=== PATIENT | female | born 1990 | race Caucasian/White ===

== ENCOUNTER 2025-04-11 18:36 | Emergency (ER) | payer BC, SELFPAY ==
--- OUTSIDE RECORDS SUMMARY | 2025-04-11 18:38 | XMS_ITS | Clinical Summary ---
Author Organization [facility] Address [address] [place] [address] Phone Care Team Providers Care Physician Assistant Surgery Name Role Phone Brayan Stanley APRN, VALERY Primary Care Provider Social History Tobacco Use Types Packs/Day Years Used Date Smoking Tobacco: Never Assessed Comments Unknown Sex and Gender Information Value Date Recorded Sex Assigned at Not on file Legal Sex Female 9:20 PM CDT Gender Identity Not on file Sexual Orientation Not on file Plan of Treatment Health Maintenance Due Date Last Done Comments Hepatitis C Virus (HCV) Screening 1989 TdaP Immunization 1989 Hepatitis B Immunization (1 of 3 - 19+ 3-dose series) 2008 Pap Smear 2010 Human Papillomavirus (HPV) Immunization (1 - 3-dose SCDM series) 2016 Cervical Cancer Screening (CCS) 10/16/2019 HPV/Cotest 10/16/2019 SARS-COV-2 Immunization (2023- season) 2024 Influenza Immunization (#1) 2025 Respiratory Syncytial Virus (RSV) Immunization (Adult) (1 - 1-dose 75+ series) 2064 Meningococcal Immunization (ACWY) Aged Out No longer eligible based on patient's age to complete this topic Pneumococcal Immunization Combined Aged Out No longer eligible based on patient's age to complete this topic Rotavirus Immunization Aged Out No lo nger eligible based on patient's age to complete this topic Insurance MEDICAID [employer] Care Teams Physician Assistant Surgery Relationship Specialty Start Date End Date Brayan Stanley, LOGISTICS/SHIPPER, DONOR RELATIONS COORDINATOR [address] [place] [address] PCP - General Certified Nurse Practitioner 04/10/16
--- OUTSIDE RECORDS SUMMARY | 2025-04-11 18:40 | XMS_ITS | Clinical Summary ---
Author Organization [facility] Virtual Care Address [address] [place] [phone] Phone Care Team Providers Care Concrete Finishing Machine Operator Name Role Phone Yifan Emanuel MD Primary Care Provider + Allergies Active Allergy Reactions Criticality Noted Date Comments Amoxicillin Medications QUEtiapine (SEROquel) 200 mg tablet Take 1 tablet (200 mg total) by mouth nightly Active topiramate (TOPAMAX) 15 mg capsuleIndicat ions:Migraine Prevention Take 1 capsule (15 mg total) by mouth daily Active methocarbamoL (ROBAXIN) 500 mg tabletIndicati ons:Sprain of right shoulder, initial encounter,Rota tor cuff injury, right, initial encounter Take 1 tablet (500 mg total) by mouth 2 (two) times a day Take as directed to relax muscles. 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 Family History Medical History Relation Name Comments Other Father Unknown; Lung cancer Maternal Grandmother Cancer -lung; Depression Mother 2 Depression; Other Mother 2 Alive and well; Dementia Other Dementia; Stroke Other Stroke; Relation Name Status Comments Father Maternal Grandmother Mother 1 Alive Mother 2 Other Social History Tobacco Use Types Packs/Day Years Used Date Smoking Tobacco: Every Day Cigarettes 0.4 14 Smokeless Tobacco: Never Tobacco Cessation:Ready to Q uit: Not Asked; Counseling Given: Not Answered Alcohol Use Standard Drinks/Week Comments Yes 0 (1 standard drink = 0.6 oz pur e alcohol) Personal Safety Answer Date Recorded Have you ever been in or are you currently in a harmful physical or emotional relationship or is someone making you feel afraid or unsafe? 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 Gender Identity Not on file Sexual Orientation Not on file Obstetrics History Last Filed Vital Signs Vital Sign Reading Time Taken Comments Blood Pressure 143/80 11/17/2024 6:23 PM CDT Pulse 71 11/17/2024 6:23 PM CDT Temperature 36.8 C (98.3 F) 11/17/2024 3:31 PM CDT Respiratory Rate 16 11/17/2024 6:23 PM CDT Oxygen Saturation 99% 11/17/2024 6:23 PM CDT Inhaled Oxygen Concentration - - Weight 63.5 kg (140 lb) 11/17/2024 3:31 PM CDT Height 154.9 cm (5' 1) 11/17/2024 3:31 PM CDT Body Mass Index 26.45 11/17/2024 3:31 PM CDT Plan of Treatment Health Maintenance Due Date Last Done Comments Cervical Cancer Screening 1989 Depression Screening 1989 Hepatitis C Screening 1989 Varicella Vaccines (1 of 2 - 13+ 2-dose series) 2002 Regular Well Visit/Exam 18-64 10/16/2007 Pneumococcal vaccine <65 (1 of 2 - PCV) 2008 DTaP/Tdap/Td Vaccine (5 - Tdap) 11/10/2008 11/09/2008, 03/19/2004, 05/07/1991, Additional history exists HPV Vaccines (1 - 3-dose SCD M series) 2016 Influenza Vaccine (#1) 2025 05/29/2009 Hepatitis B Screening Completed 10/04/1999, 999 Insurance BLUE ACCESS OOS BLUE ACCESS OOS Care Teams Concrete Finishing Machine Operator Relationship Specialty Start Date End Date Yifan Emanuel MD [address] [place] [place] [address] PCP - General Internal Medicine 11/17/24
[2025-04-11 18:51] VITALS: BP 140/80; PULSE 99; RESP 16; TEMP 36.6; O2SAT 100
[2025-04-11 19:19] LABS: EDSTREPNEGPOS1 Negative (Negative)
--- NOTE | 2025-04-11 19:35 | ED_ITS ---
HPI - General Adult General Chief complaint: Upper Respiratory Infection Stated complaint: Sore Throat/Shortness of Breath Source: patient Mode of arrival: ambulatory Limitations: no limitations History of Present Illness HPI narrative: Patient presents for evaluation of sore throat for last 2 days. She has not checked her temperature to know whether she has had a fever but has felt warm. She also reports some sinus congestion and postnasal drainage. She has chronic thick postnasal discharge that she states is difficult to swallow. She has had the symptoms for many years. Her mother had what sounds to be an esophageal stricture. She is wondering if she may as well. She has been experiencing a burning sensation in her throat. As of today she has noted a cough that she attributes to postnasal drainage. Her son currently has upper respiratory symptoms. She smokes 1/2 ppd/ She would like an albuterol inhaler. She has had strep pharyngitis in the past and this feels similar. Related Data Allergies Allergy/AdvReac Type Severity Reaction Status Date / Time No Known Drug Allergies Allergy Unknown Unknown Verified 02/02/25 10:22 Review of Systems Review of Systems: CONSTITUTIONAL: Reports feeling warm. Denies fever, chills, or sweats. EYES: Denies visual changes, redness, or discharge. ENT: Reports sore throat, thick postnasal drainage, and longstanding history of difficulty swallowing postnasal drainage. CARDIOVASCULAR: Denies chest pain, palpitations, or edema. RESPIRATORY: Reports cough. Denies shortness of breath. GASTROINTESTINAL: Denies abdominal pain, nausea, vomiting, or diarrhea. GENITOURINARY: Denies dysuria or hematuria. SKIN: Denies rash or itching. MUSCULOSKELETAL: Denies back pain, joint pain, or myalgia. NEUROLOGIC: Denies headache, numbness, dizziness, or weakness. PSYCHIATRIC: Denies anxiety or depression. [facility] Past Medical History Medical History Rotator cuff strain Labral tear of long head of right biceps tendon Right shoulder injury Mood disorder Surgical History Surgical History No pertinent past surgical history Family History Family History Mother Diabetes mellitus Family history of hypercholesterolemia Depression Hypertension Social History Social History Smoking packs per day: 0.5 Smoking cigarettes per day: 10.0 Years smoked: 15 Smoking pack-years: 7.50 Smoking status: Current every day smoker Tobacco type: cigarettes Alcohol intake: current Drinks per week: 1 Occupation/Education: occupation 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 HEAD: Normocephalic, atraumatic. EYES: PERRLA and EOMI. ENT: Nares clear, no rhinorrhea or epistaxis. Mucous membranes moist. Oropharynx without tonsillar hypertrophy exudate or other lesions. Bilateral TMs pearly ibrahim nonbulging NECK: Supple. No adenopathy or masses. No carotid bruits or JVD CHEST: Clear to auscultation. No respiratory distress. No wheezes rales or rhonchi HEART: Regular rate and rhythm. No murmur heard. Normal peripheral pulses. ABDOMEN: Soft, nontender, nondistended, normal active bowel sounds. EXTREMITIES: Normal range of motion. No edema. SKIN: Warm, dry, no rash. NEURO: No focal deficits. Alert and oriented x3. PSYCH: Normal mood and affect. Course Course Emergency Course: This is a 34-year-old female that presented for evaluation of sore throat. Rapid strep negative. She states her current symptoms are consistent with previous bouts of strep. Through shared decision making opted to proceed with antibiotic therapy. She would like an albuterol inhaler. I think this is reasonable given her smoking history. In regard to her burning sensation in her chest, we will start pantoprazole. I also recommended she follow-up with ENT for potential scope as she has a longstanding history of difficulty swallowing her secretions. Her airway is patent and she is in no distress. She should follow-up with her primary provider. Go to the ER for worsening symptoms. Patient in agreement with plan of care. Level of Care: Express Care Visit Vital Signs Vital signs: Vital Signs Temperature 36.6 C 04/11/25 18:51 Pulse Rate 99 04/11/25 18:51 Respiratory Rate 16 04/11/25 18:51 Blood Pressure 140/80 04/11/25 18:51 Pulse Oximetry 100 04/11/25 18:51 Oxygen Delivery Room Air 04/11/25 18:51 Temperature 36.6 C 04/11/25 18:51 Pulse Rate 99 04/11/25 18:51 Respiratory Rate 16 04/11/25 18:51 Blood Pressure 140/80 04/11/25 18:51 Pulse Oximetry 100 04/11/25 18:51 Oxygen Delivery Room Air 04/11/25 18:51 Medical Decision Making Vital Signs Vital Signs: Vital Signs Temperature 36.6 C 04/11/25 18:51 Pulse Rate 99 04/11/25 18:51 Respiratory Rate 16 04/11/25 18:51 Blood Pressure 140/80 04/11/25 18:51 Pulse Oximetry 100 04/11/25 18:51 Oxygen Delivery Room Air 04/11/25 18:51 Temperature 36.6 C 04/11/25 18:51 Pulse Rate 99 04/11/25 18:51 Respiratory Rate 16 04/11/25 18:51 Blood Pressure 140/80 04/11/25 18:51 Pulse Oximetry 100 04/11/25 18:51 Oxygen Delivery Room Air 04/11/25 18:51 Lab Data Labs: Lab Results 04/11/25 Range/Units 19:17 POC Grp A Strep Screen Negative (Negative) Discharge Plan Discharge Clinical Impression: Pharyngitis, Difficulty swallowing, GERD (gastroesophageal reflux disease) Patient Disposition: Home Condition: Stable Instructions: Antibiotic Form, Pharyngitis (ED), Dysphagia (ED), Gastroesophageal Reflux in Infants (ED) Additional Instructions: PLEASE FOLLOW UP WITH DR RODAS ABOUT THE SWALLOWING ISSUE YOU HAVE EXPERIENCED FOR QUITE SOME TIME Patient Language: Moroccan Prescriptions: New pantoprazole 40 mg tablet,delayed release (DR/EC) 40 mg PO HS 28 Days Qty: 28 0RF amoxicillin-pot clavulanate 875-125 mg tablet 1 tablet PO Q12H Qty: 20 0RF albuterol sulfate 90 mcg/actuation aerosol powdr breath activated 2 inh inhalation Q4-6H PRN (Reason: shortness of breath) Qty: 1 0RF Follow-up/Referrals: Greg Rodas MD [Physician, Ear, Nose, Throat] Adelfo,Souleymane Hinojosa MD [Primary Care Provider] Time of Disposition: 19:33
== END 2025-04-11 19:42 | disposition home or self-care (01) ==
PROVIDERS: Emergency Provider Nurse Practitioner; PCP Internal Medicine
DX: J02.9 Acute pharyngitis, unspecified (principal); R13.10 Dysphagia, unspecified; K21.9 Gastro-esophageal reflux disease without esophagitis; Z83.3 Family history of diabetes mellitus; Z82.49 Family history of ischemic heart disease and other diseases of the circulatory system; F17.210 Nicotine dependence, cigarettes, uncomplicated
CPT/HCPCS: 87081; 87880; 99213; G0463